=== PATIENT | female | born 1935 | race Caucasian/White ===

== ENCOUNTER → 2016-11-03 | Outpatient (CLI) | payer MEDICARE, OTHER ==
[2016-11-03 08:22] LABS: ALBUMIN 3.6 g/dL (3.4-5.0); ALBUMIN/GLOBULIN RATIO 1.3 (1.0-1.7); CALCIUM 9.9 mg/dL (8.5-10.1); CREATININE 0.7 mg/dL (0.6-1.0); GFR 80.3; POTASSIUM 4.7 mmol/L (3.5-5.1); TOTAL BILIRUBIN 0.6 mg/dL (0.2-1.0); TOTAL PROTEIN 6.4 g/dL (6.4-8.2)
[2016-11-04 03:15] LABS: HEMOGLOBIN A1C 7.5 % (4.8-5.6)
== END | disposition home or self-care (01) ==
LOC: SPEC 07:48
PROVIDERS: ATTEND Internal Medicine
DX: E11.9 Type 2 diabetes mellitus without complications (principal); Z79.4 Long term (current) use of insulin
CPT/HCPCS: 36415; 80053; 80061; 82043; 83036

== ENCOUNTER → 2016-12-09 | Outpatient (CLI) | payer MEDICARE, OTHER ==
--- NOTE | 2016-12-09 13:21 | RAD ---
WRIST 3V LEFT Clinical Indication: FALL LAST NIGHT, BRUISING AND SWELLING Comparison: None. Findings: Acute, minimally displaced fracture of the radial styloid process with intra-articular extension. 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 Bony mineralization is normal for the patient's age. No significant soft tissue abnormality. No radiopaque foreign body. IMPRESSION: 1. Acute, minimally displaced fracture of the radial styloid process with intra-articular extension. 2. 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
== END | disposition home or self-care (01) ==
LOC: DXRAD 10:59
PROVIDERS: ATTEND Internal Medicine
DX: S52.512A Displaced fracture of left radial styloid process, initial encounter for closed fracture (principal); X58.XXXA Exposure to other specified factors, initial encounter; Y93.89 Activity, other specified; Y92.89 Other specified places as the place of occurrence of the external cause; Y99.8 Other external cause status
CPT/HCPCS: 73110

== ENCOUNTER → 2017-01-09 | Outpatient (CLI) | payer MEDICARE, OTHER ==
[2017-01-09 22:18] LABS: BACTERIA,URINE FEW /HPF (0-FEW); BILIRUBIN,URINE NEG (NEG); CLARITY,URINE CLOUDY; COLOR,URINE YELLOW; GLUCOSE,URINE NEG (NEG); NITRITE,URINE NEG (NEG); UROBILINOGEN,URINE 0.2 mg/dL (0.2 mg/dL); WBC,URINE 20-40 /HPF (0-4)
== END | disposition home or self-care (01) ==
LOC: SPEC 16:11
PROVIDERS: ATTEND Internal Medicine
DX: Z00.00 Encounter for general adult medical examination without abnormal findings (principal)
CPT/HCPCS: 81001

== ENCOUNTER → 2017-04-27 | Outpatient (CLI) | payer MEDICARE, OTHER ==
[2017-04-27 09:56] LABS: ALBUMIN 3.8 g/dL (3.4-5.0); ALBUMIN/GLOBULIN RATIO 1.4 (1.0-1.7); CALCIUM 9.5 mg/dL (8.5-10.1); CREATININE 0.7 mg/dL (0.6-1.0); GFR 80.1; POTASSIUM 4.4 mmol/L (3.5-5.1); TOTAL BILIRUBIN 0.8 mg/dL (0.2-1.0); TOTAL PROTEIN 6.5 g/dL (6.4-8.2)
[2017-04-28 01:11] LABS: HEMOGLOBIN A1C 8.3 % (4.8-5.6)
== END | disposition home or self-care (01) ==
LOC: SPEC 09:27
PROVIDERS: ATTEND Internal Medicine
DX: E11.9 Type 2 diabetes mellitus without complications (principal); Z79.4 Long term (current) use of insulin
CPT/HCPCS: 36415; 80053; 80061; 82043; 83036

== ENCOUNTER → 2017-05-05 | Outpatient (CLI) | payer MEDICARE, OTHER ==
[~2017-05-05] MED LIST: BUPIVACAINE MPF 0.5% 30 ML VIAL. ONE; LIDOCAINE 1% PF 30 ML VIAL. ONE; methylPREDNISolone ACETATE 40 MG/ML VIAL. ONE
== END | disposition home or self-care (01) ==
LOC: SURG 09:04
PROVIDERS: ATTEND Anesthesiology Pain Medicine
DX: M46.96 Unspecified inflammatory spondylopathy, lumbar region (principal); M51.36 Other intervertebral disc degeneration, lumbar region; M54.16 Radiculopathy, lumbar region; M70.70 Other bursitis of hip, unspecified hip
CPT/HCPCS: 99205; J1030; J2001; J3490

== ENCOUNTER → 2017-06-02 | Outpatient (CLI) | payer MEDICARE, OTHER ==
[~2017-06-02] MED LIST changes: +BUPIVACAINE MPF 0.25% 10 ML VIAL. ONE; -BUPIVACAINE MPF 0.5% 30 ML VIAL. ONE; +DEXAMETHASONE SOD PHOS 4 MG/ML VIAL ONE; +IOHEXOL 300 MG/ML 50 ML VIAL. ONE; -methylPREDNISolone ACETATE 40 MG/ML VIAL. ONE
== END | disposition home or self-care (01) ==
LOC: SURG 09:10
PROVIDERS: ATTEND Anesthesiology Pain Medicine
DX: M54.16 Radiculopathy, lumbar region (principal); G89.29 Other chronic pain
CPT/HCPCS: 64483; 64484; J1100; J2001; J3490; Q9967

== ENCOUNTER → 2017-06-16 | Outpatient (CLI) | payer MEDICARE, OTHER ==
[~2017-06-16] MED LIST changes: -DEXAMETHASONE SOD PHOS 4 MG/ML VIAL ONE; -IOHEXOL 300 MG/ML 50 ML VIAL. ONE; +methylPREDNISolone ACETATE 40 MG/ML VIAL. ONE
== END | disposition home or self-care (01) ==
LOC: SURG 10:06
PROVIDERS: ATTEND Anesthesiology Pain Medicine
DX: M47.816 Spondylosis without myelopathy or radiculopathy, lumbar region (principal); Z88.8 Allergy status to other drugs, medicaments and biological substances
CPT/HCPCS: 64494; 64495; J1030; J2001; J3490

== ENCOUNTER → 2017-07-28 | Outpatient (CLI) | payer MEDICARE, OTHER ==
[~2017-07-28] MED LIST changes: -BUPIVACAINE MPF 0.25% 10 ML VIAL. ONE; +BUPIVACAINE MPF 0.5% 30 ML VIAL. ONE
== END ==
LOC: SURG 10:32
PROVIDERS: ATTEND Anesthesiology Pain Medicine
DX: M25.551 Pain in right hip (principal); E11.9 Type 2 diabetes mellitus without complications; Z86.73 Personal history of transient ischemic attack (TIA), and cerebral infarction without residual deficits; Z88.8 Allergy status to other drugs, medicaments and biological substances
CPT/HCPCS: 20610; 77002; J1030; J2001; J3490; 20611

== ENCOUNTER → 2018-03-16 | Outpatient (CLI) | payer MEDICARE, OTHER ==
--- NOTE | 2018-03-16 14:59 | RAD ---
Left hip, 2 views, 03/16/2018: HISTORY: Hip pain, fall No hip fracture or dislocation is identified. The left hip joint space is well maintained. There is spurring along the margin of the greater trochanter. There are deformities of the superior and inferior pubic rami on the left. The pubic bones are partially obscured by overlying bowel. IMPRESSION: 1. Pubic bone deformities suggesting fractures which are probably old. CT scanning would better delineate the pubic bones, if clinically indicated. 2. No acute left hip fracture is evident. Electronically signed by: Jeremie Mckeon MD (03/16/2018 2:55 PM) [facility]
== END | disposition home or self-care (01) ==
LOC: RAD 08:56
PROVIDERS: ATTEND Internal Medicine
DX: M25.552 Pain in left hip (principal); M95.8 Other specified acquired deformities of musculoskeletal system; W19.XXXD Unspecified fall, subsequent encounter
CPT/HCPCS: 73502

== ENCOUNTER → 2019-10-10 | Outpatient (CLI) | payer MEDICARE, OTHER ==
--- NOTE | 2019-10-10 11:40 | RAD ---
Bilateral lower extremity arterial duplex ultrasound study without comparison for peripheral arterial disease. TECHNIQUE AND FINDINGS: Real-time grayscale and color and spectral Doppler evaluation of the arteries of bilateral lower extremities is performed. There is moderate multifocal atherosclerosis. This is particularly evident in the proximal deep femoral artery, distal femoral artery, as well as in the posterior tibial and peroneal arteries. There is normal triphasic or biphasic flow throughout all interrogated arteries, with no areas of focal velocity elevation to confirm hemodynamically significant stenosis in the right lower extreme knee. On the left, findings are similar with multifocal calcified atherosclerosis, but normal triphasic or biphasic waveforms throughout all interrogated arteries and no areas of focal velocity elevation meeting criteria to confirm hemodynamic significant stenosis. IMPRESSION: 1. Moderate multifocal atherosclerosis with no ultrasound evidence of focal hemodynamically significant stenosis in either extremity. Electronically signed by: Wes Seymour MD (10/10/2019 11:37 AM) [id number]
== END | disposition home or self-care (01) ==
LOC: US 10:30
PROVIDERS: ATTEND Podiatrist
DX: I70.203 Unspecified atherosclerosis of native arteries of extremities, bilateral legs (principal)
CPT/HCPCS: 93925

== ENCOUNTER → 2020-06-08 | Outpatient (CLI) | payer MEDICARE, OTHER ==
[~2020-06-08] MED LIST changes: -BUPIVACAINE MPF 0.5% 30 ML VIAL. ONE; +IOHEXOL 240 MG/ML 50ML VIAL. ONE; +IOHEXOL 300 MG/ML 75 ML VIAL. IV ONE; -LIDOCAINE 1% PF 30 ML VIAL. ONE; -methylPREDNISolone ACETATE 40 MG/ML VIAL. ONE
[2020-06-08 09:53] LABS: CREATININE 0.8 mg/dL (0.6-1.0); GFR 68.2
--- NOTE | 2020-06-08 12:33 | RAD ---
CT of the abdomen and pelvis with IV and oral contrast 06/08/2020 INDICATION: Low abdominal pain COMPARISON STUDY: None available. TECHNIQUE: Multidetector CT imaging of the abdomen and pelvis was performed following the administrat ion of IV and oral contrast. FINDINGS: There is a 5 mm noncalcified nodule left lung base. Lung bases otherwise unremarkable. Prio r left mastectomy noted. The gallbladder is surgically absent. Liver is otherwise unremarkable. Splee n is unremarkable. The right adrenal gland is normal. There is a low density nodular lesion in the le ft adrenal gland measuring approximately 1.8 cm in diameter. Attenuation characteristics are nonspeci fic. No comparison exam is available. Small cyst within the superior left kidney measuring 5 mm in di ameter. The kidneys are otherwise grossly unremarkable. There is a small cystic mass in the body of the pancreas measuring 1.4 cm in diameter (axial image 23 coronal image 14). The pancreatic duct is not dilated. No other focal abnormalities of the pancreas are seen. No mesenteric adenopathy is identified. There is no bowel obstruction. Minimal scattered colonic dive rticula noted. No evidence of acute inflammatory change involving the bowel is identified. The append ix is unremarkable in appearance. Bladder is unremarkable. Uterus is prominent for patient age with somewhat prominent enhancement seen in the fundus with associated calcification. Calcified foci within the uterus. CT is limited for alyce luation. No free fluid or free air seen in the abdomen or pelvis. There are degenerative changes of the thorac ic and lumbosacral spine without evidence of acute osseous abnormality. IMPRESSION: 1. 1.4 cm cystic-appearing mass in the body of the pancreas. No associated ductal dilatation is identified. Findings could represent a small cyst or pseudocyst. A cystic or mucinous neoplasm is not excluded. Consider MRI imaging for further characterization. 2. 1.8 centimeter nonspecific nodule in the left adrenal gland. Adrenal protocol MRI could be pe rformed at the time of abdominal MRI for further characterization. 3. The uterus is prominent for patient age with focal enhancement calcification within the fundus. H istory of low abdominal pain recommend further characterization with transabdominal and transvaginal ultrasound. 4. 5 mm noncalcified nodule, left lung base. CT DOSING PQRS STATEMENT: One or more of the following individualized dose reduction techniques were utilized for this examinat ion: 1. Automated exposure control 2. Adjustment of the mA and/or kV according to patient size 3. Use of iterative reconstruction technique Electronically signed by: Jonathan Rubi MD (06/08/2020 12:31 PM) [id number]
--- NOTE | 2020-06-13 22:38 | RAD ---
DATE: 06/08/2020 EXAM: DIGITAL SCREEN RT W/CAD HISTORY: Screening. History of left breast cancer post mastectomy in 2008. COMPARISON: 02/07/2019, 02/14/2018, 02/09/2017 This study was interpreted with the benefit of Computerized Aided Detection (CAD). Breast Density: HETERO The breast parenchyma is heterogenously dense, which could reduce sensitivity of mammography. Breast parenchyma level C. FINDINGS: Benign-appearing calcifications throughout the right breast are unchanged. No suspicious mass, suspicious calcifications, or architectural distortion. IMPRESSION: No evidence of malignancy in the right breast. BI-RADS CATEGORY: 2 BENIGN FINDING(S) RECOMMENDED FOLLOW-UP: 12M 12 MONTH FOLLOW-UP PQRS compliance statement: Patient information was entered into a reminder system with a target due date for the next mammogram. Mammography is a sensitive method for finding small breast cancers, but it does not detect them all and is not a substitute for careful clinical examination. A negative mammogram does not negate a clinically suspicious finding and should not result in delay in biopsying a clinically suspicious abnormality. "Our facility is accredited by the [employer] Mammography Program."
== END ==
LOC: CT 07:55
PROVIDERS: ATTEND Internal Medicine
DX: Z01.812 Encounter for preprocedural laboratory examination (principal); Z12.31 Encounter for screening mammogram for malignant neoplasm of breast; R10.30 Lower abdominal pain, unspecified; K86.89 Other specified diseases of pancreas; K86.2 Cyst of pancreas
CPT/HCPCS: 36415; 74177; 77067; 82565; 84520; Q9967

== ENCOUNTER 2020-09-16 14:06 | Emergency (ER) | payer MEDICARE, OTHER ==
[~2020-09-16] VITALS: Ht 162.6 cm; Wt 70.0 kg
--- NOTE | 2020-09-16 14:50 | RAD ---
EXAM: Pelvis and left hip, 3 views. HISTORY: Fall. Pain. COMPARISON: 03/16/2018 FINDINGS: And frontal view of the pelvis and frontal and frog-leg views of the left hip are obtained. There is no fracture, dislocation or subluxation. There is mild right greater than left hip osteoart hritis and slight calcification of the acetabular labrum is. There are healed left pubic rami fractur es. There is sacralization of the left L5 transverse process resulting in pseudoarticulation with the underlying left sacrum, a normal variant. There is degenerative change throughout the visualized lum bar spine. There is a small incidental calcified uterine fibroid. IMPRESSION: 1. Mild bilateral hip osteoarthritis. 2. Degenerative change throughout the visualized lumbar spine. 3. Healed left pubic rami fractures. Electronically signed by: Catalina Mcmanus MD (09/16/2020 2:48 PM) [id number]
--- NOTE | 2020-09-16 15:40 | RAD ---
EXAM: Pelvis CT without contrast. HISTORY: Fall and pain. TECHNIQUE: Computed tomographic images of the pelvis were obtained without contrast. *One or more of the following individualized dose reduction techniques were utilized for this examina tion: 1. Automated exposure control. 2. Adjustment of the mA and/or kV according to patient size. 3. Use of iterative reconstruction technique. COMPARISON: 06/08/2020. FINDINGS: There is no acute fracture, dislocation or subluxation. There is mild bilateral hip joint s pace narrowing with degenerative subchondral sclerosis, subchondral cyst formation and marginal aceta bular and femoral head spurring. There are healed left superior and inferior pubic rami fractures. Th ere is degenerative subchondral sclerosis and vacuum phenomenon involving the pubis symphysis and sac roiliac joints. There is grade 1 anterolisthesis of L4 on L5, measuring 4 mm. There is grade 1 anterolisthesis of L5 on S1, measuring 3 mm. There is sacralization of the left L5 transverse process resulting in pseudoar ticulation with the underlying left sacrum, a normal variant. There is a rudimentary disc at L5-S1. T here is degenerative endplate remodeling with disc space narrowing, osteophytosis and Schmorl's node formation at L4-L5. The combination of this finding and moderate bilateral facet arthropathy results in moderate bilateral foraminal and central canal stenosis at this level. There is also endplate miguel ángel deling and severe facet arthropathy at L4-L5 resulting in mild right foraminal and central canal sten osis. There is posterior lateral endplate osteophytosis at L5-S1 contributing to moderate left forami nal stenosis. There is moderate colonic stool. There is sigmoid diverticulosis. There are calcified uterine fibroid s. The bladder is unremarkable. There is suspected pelvic floor relaxation. There is no lymphadenopat hy. IMPRESSION: 1. No acute osseous finding. 2. Healed left pubic rami fractures. 3. Mild bilateral hip osteoarthritis and degenerative change involving the pubis symphysis and sacroi liac joints. 4. Sacralization of the left L5 transverse process resulting in pseudoarticulation with the sacrum, a normal variant. 5. Degenerative change involving the visualized lumbar spine, resulting in stenosis at the aforementi oned levels. 6. Sigmoid diverticulosis. 7. Calcified uterine fibroids. Electronically signed by: Catalina Mcmanus MD (09/16/2020 3:37 PM) [id number]
--- NOTE | 2020-09-16 16:11 | PHYS DOC ---
Past History Past Surgical History: Tonsillectomy, Other Additional Past Surgical Histo: bilat knee, L achilles tendon repair Adult General Chief Complaint Chief Complaint: HIP PAIN HPI HPI Patient is a 84-year-old female patient presented to the ED today complaining of 5 out of 10 sharp intermittent left hip pain radiating to the groin that began today after she tripped on her walker and fell. Patient denies any loss of consciousness. She also states she landed on her left elbow. Patient states the pain is worse on ambulation. States sitting down relieves most of the pain. Review of Systems Review of Systems Constitutional: Denies fever or chills [] GI: Denies abdominal pain, nausea, vomiting, bloody stools or diarrhea [] : Denies dysuria or hematuria [] Musculoskeletal: Reports left hip pain radiating to the groin Integument: Denies rash or skin lesions [] Neurologic: Denies headache, focal weakness or sensory changes [] All other systems were reviewed and found to be within normal limits, except as documented in this note. Allergies Allergies Allergies Coded Allergies Type Severity Reaction Last Updated Verified gabapentin Allergy Unknown 06/08/20 Yes Physical Exam Physical Exam Constitutional: Well developed, well nourished, no acute distress, non-toxic appearance. [] Skin: Warm, dry, no erythema, no rash. [] Back: No tenderness, no CVA tenderness. [] Extremities: Bilateral lower extremities with no obvious deformity. Tenderness on palpation of the left lateral hip. Limited internal and external rotation of the hip. +2 left pedal pulse. Cap refill less than 2 seconds to the left lower extremity. Sensation intact to the left lower extremity Neurologic: Alert and oriented X 3, normal motor function, normal sensory function, no focal deficits noted. [] Psychologic: Affect normal, judgement normal, mood normal. [] Current Patient Data Vital Signs Vital Signs Date Time Temp Pulse Resp B/P (MAP) Pulse Ox O2 Delivery O2 Flow Rate FiO2 09/16/20 14:20 98.3 86 16 153/64 Room Air EKG EKG [] Radiology/Procedures Radiology/Procedures []PROCEDURE: HIP LEFT 2V WITH PELVIS EXAM: Pelvis and left hip, 3 views. HISTORY: Fall. Pain. COMPARISON: 03/16/2018 FINDINGS: And frontal view of the pelvis and frontal and frog-leg views of the left hip are obtained. There is no fracture, dislocation or subluxation. There is mild right greater than left hip osteoarthritis and slight calcification of the acetabular labrum is. There are healed left pubic rami fractures. There is sacralization of the left L5 transverse process resulting in pseudoarticulation with the underlying left sacrum, a normal variant. There is degenerative change throughout the visualized lumbar spine. There is a small incidental calcified uterine fibroid. IMPRESSION: 1. Mild bilateral hip osteoarthritis. 2. Degenerative change throughout the visualized lumbar spine. 3. Healed left pubic rami fractures. Electronically signed by: Catalina Mcmanus MD (09/16/2020 2:48 PM) [id number] DICTATED AND SIGNED BY: CATALINA MCMANUS MD DATE: 09/16/20 1446 CC: KEIRY OROZCO APRN; AMPARO POND MD ~MTH0 0 PROCEDURE: CT PELVIS WO CONTRAST EXAM: Pelvis CT without contrast. HISTORY: Fall and pain. TECHNIQUE: Computed tomographic images of the pelvis were obtained without contrast. *One or more of the following individualized dose reduction techniques were utilized for this examination: 1. Automated exposure control. 2. Adjustment of the mA and/or kV according to patient size. 3. Use of iterative reconstruction technique. COMPARISON: 06/08/2020. FINDINGS: There is no acute fracture, dislocation or subluxation. There is mild bilateral hip joint space narrowing with degenerative subchondral sclerosis, subchondral cyst formation and marginal acetabular and femoral head spurring. There are healed left superior and inferior pubic rami fractures. There is degenerative subchondral sclerosis and vacuum phenomenon involving the pubis symphysis and sacroiliac joints. There is grade 1 anterolisthesis of L4 on L5, measuring 4 mm. There is grade 1 anterolisthesis of L5 on S1, measuring 3 mm. There is sacralization of the left L5 transverse process resulting in pseudoarticulation with the underlying left sacrum, a normal variant. There is a rudimentary disc at L5-S1. There is degenerative endplate remodeling with disc space narrowing, osteophytosis and Schmorl's node formation at L4-L5. The combination of this finding and moderate bilateral facet arthropathy results in moderate bilateral foraminal and central canal stenosis at this level. There is also endplate remodeling and severe facet arthropathy at L4-L5 resulting in mild right foraminal and central canal stenosis. There is posterior lateral endplate osteophytosis at L5-S1 contributing to moderate left foraminal stenosis. There is moderate colonic stool. There is sigmoid diverticulosis. There are calcified uterine fibroids. The bladder is unremarkable. There is suspected pelvic floor relaxation. There is no lymphadenopathy. IMPRESSION: 1. No acute osseous finding. 2. Healed left pubic rami fractures. 3. Mild bilateral hip osteoarthritis and degenerative change involving the pubis symphysis and sacroiliac joints. 4. Sacralization of the left L5 transverse process resulting in pseudoarticulation with the sacrum, a normal variant. 5. Degenerative change involving the visualized lumbar spine, resulting in stenosis at the aforementioned levels. 6. Sigmoid diverticulosis. 7. Calcified uterine fibroids. Electronically signed by: Catalina Mcmanus MD (09/16/2020 3:37 PM) [id number] DICTATED AND SIGNED BY: CATALINA MCMANUS MD DATE: 09/16/20 1527 CC: KEIRY OROZCO ASSOCIATE [employer]CH[employer]ISE PLANNER; AMPARO POND MD ~MTH0 0 Heart Score C/O Chest Pain: N/A Risk Factors: Risk Factors: DM, Current or recent (<one month) smoker, HTN, HLP, family history of CAD, obesity. Risk Scores: Risk Factors: DM, Current or recent (<one month) smoker, HTN, HLP, family history of CAD, obesity. Course & Med Decision Making Course & Med Decision Making Pertinent Labs and Imaging studies reviewed. (See chart for details) This is a 84-year-old female patient presented to the ED today with left hip pain after falling. Acute x-rays were negative for any acute findings, CT of the left hip/pelvis was done which was negative, discharged to home. Follow-up with her own PCP and orthopedic doctor in 1 to 2 weeks as needed Dragon Disclaimer Dragon Disclaimer This electronic medical record was generated, in whole or in part, using a voice recognition dictation system. Departure Departure: Impression: Primary Impression: Fall Additional Impression: Contusion of left hip Disposition: 01 HOME / SELF CARE / HOMELESS Condition: STABLE Referrals: AMPARO POND MD (PCP) follow up in one week Patient Instructions: Contusion, [id number], Fall Prevention and Home Safety Additional Instructions: You were evaluated in the emergency room for left hip pain, your left hip x-rays as well as x-ray of the left hip and pelvis were negative for any acute findings. Please follow-up with your primary care doctor or orthopedic doctor in 1 to 2 weeks. Try to ice and elevate the you can take [id number] pain relievers as needed for pain Problem Qualifiers Primary Impression: Fall Encounter type: initial encounter Qualified Codes: W19.XXXA - Unspecified fall, initial encounter Additional Impression: Contusion of left hip Encounter type: initial encounter Qualified Codes: S70.02XA - Contusion of left hip, initial encounter KEIRY OROZCO ASSOCIATE [employer]ISE PLANNER Sep 16, 2020 16:11
[2020-09-16 16:30] VITALS: BP 142/62
== END 2020-09-16 16:47 | disposition home or self-care (01) ==
LOC: ER 14:06
DX: S70.02XA Contusion of left hip, initial encounter (principal); W01.0XXA Fall on same level from slipping, tripping and stumbling without subsequent striking against object, initial encounter; Y93.89 Activity, other specified; Y92.89 Other specified places as the place of occurrence of the external cause; Y99.8 Other external cause status
CPT/HCPCS: 72192; 73502; 99284-25

== ENCOUNTER → 2020-10-30 | Outpatient (CLI) | payer MEDICARE, OTHER ==
--- NOTE | 2020-10-30 10:30 | RAD ---
EXAM: Left shoulder, 3 views; left humerus, 2 views. HISTORY: Pain. COMPARISON: None. FINDINGS: 3 views of the left shoulder and 2 views of the left humerus are obtained. There is no frac ture, dislocation or subluxation. There is minimal acromioclavicular and glenohumeral osteophyte arth ritis. There are degenerative changes involving the cervical spine, not formally assessed on this exa m. IMPRESSION: No acute osseous finding. Minimal acromioclavicular and glenohumeral joint osteoarthritis . Electronically signed by: Catalina Mcmanus MD (10/30/2020 10:27 AM) [id number]
== END ==
LOC: DXRAD 09:35
PROVIDERS: ATTEND Internal Medicine
DX: M19.012 Primary osteoarthritis, left shoulder (principal); M47.812 Spondylosis without myelopathy or radiculopathy, cervical region; M25.512 Pain in left shoulder
CPT/HCPCS: 73030; 73060

== ENCOUNTER → 2020-11-18 | Outpatient (CLI) | payer MEDICARE, OTHER ==
--- NOTE | 2020-11-18 16:23 | RAD ---
INDICATION: Reason: LLE PAIN / Spl. Instructions: / History: COMPARISON: None. TECHNIQUE: Grayscale, color and doppler ultrasound images were obtained of the left lower extremity v enous vasculature. LEFT: No thrombus identified in the common femoral vein, femoral vein, popliteal vein or visualized calf ve ins. Edema of soft tissues. IMPRESSION: * No thrombus identified in deep venous system of the left lower extremity. Electronically signed by: Chema Guajardo MD (11/18/2020 4:20 PM) [id number]
== END ==
LOC: US 15:47
PROVIDERS: ATTEND Podiatrist
DX: M79.89 Other specified soft tissue disorders (principal); M79.605 Pain in left leg
CPT/HCPCS: 93971

== ENCOUNTER → 2021-06-18 | Outpatient (CLI) | payer MEDICARE, OTHER ==
--- NOTE | 2021-06-18 12:18 | RAD ---
INDICATION: Reason: LEFT LEG PAIN / Spl. Instructions: / History: COMPARISON: November 2020 TECHNIQUE: Grayscale, color and doppler ultrasound images were obtained of the left lower extremity v enous vasculature. LEFT: No thrombus identified in the common femoral vein, femoral vein, popliteal vein or visualized calf ve ins. IMPRESSION: * No thrombus identified in deep venous system of the left lower extremity. Electronically signed by: Chema Guajardo MD (06/18/2021 12:16 PM) [id number]
--- NOTE | 2021-06-18 14:54 | RAD ---
Exam: XR LT TIBIA + FIBULA History: Pain. Comparison: None. Findings: Postsurgical features from left knee arthroplasty. No evidence of femoral or tibial component looseni ng or complication. No acute fracture or dislocation. There are mild degenerative changes of the tibi otalar joint. Scattered vascular calcifications and mild calcification of the interosseous membrane. No focal soft tissue swelling. Impression: 1. No acute osseous abnormality of the left tibia and fibula. Electronically signed by: Rafael Marte MD (06/18/2021 2:52 PM) [id number]
== END ==
LOC: US 11:16
PROVIDERS: ATTEND Internal Medicine
DX: M79.662 Pain in left lower leg (principal)
CPT/HCPCS: 73590; 93971